=== PATIENT | female | born 1980 ===

== ENCOUNTER 2017-01-12 19:59 | Emergency (ER) | payer OTHER ==
[2017-01-12] MEDS ORDERED: IOPAMIDOL 300 (61%) 100 ML VIAL IV ONE (20:00)
[2017-01-12 20:39] LABS: SPECIFIC GRAVITY 1.025 (1.001-1.030); URINE APPEARANCE CLEAR; URINE BILIRUBIN NEGATIVE (NEGATIVE); URINE BLOOD TRACE (NEGATIVE); URINE COLOR YELLOW; URINE GLUCOSE (UA) NEGATIVE (NEGATIVE); URINE LEUKOCYTE ESTERASE TRACE (NEGATIVE); URINE NITRITE NEGATIVE (NEGATIVE); URINE PROTEIN TRACE (NEGATIVE); URINE UROBILINOGEN NORMAL (0-1 mg/dl)
[2017-01-12 20:41] LABS: HCG,QUALITATIVE URINE NEGATIVE
[2017-01-12 20:46] LABS: URINE EPITHELIAL CELLS FEW /hpf
[2017-01-12 20:47] LABS: URINE BACTERIA 1+
[2017-01-12] MEDS ORDERED: SODIUM CHLORIDE 0.9% 1,000 ML ONE (21:47)
[2017-01-12] MEDS ORDERED: KETOROLAC TROMETHAMINE 30 MG/ML 1 ML VIAL ONE (21:47)
[2017-01-12] MEDS ORDERED: ONDANSETRON 4 MG/2ML 2 ML VIAL ONE (21:47)
[2017-01-12 21:57] LABS: ABSOLUTE NEUTROPHIL COUNT 7.7 K/mm3 (1.8-7.7); BASO % 0.4 % (0.2-1.0); EOS % 0.2 % (0.9-2.9); HEMATOCRIT 36.1 % (37.0-47.0); HEMOGLOBIN 11.7 gm/l (12.0-16.0); IMM NEUT% 0.2 % (0-1); LYMPH # 1.6 (1.0-4.8); LYMPH % 16.2 % (15-45); MEAN CELL VOLUME 85.1 fl (81.0-99.0); MEAN CORPUSCULAR HEMOGLOBIN 27.6 pg (27.0-31.0); MEAN CORPUSCULAR HGB CONC 32.4 g/dl (33.0-37.0); MEAN PLATELET VOLUME 9.7 fl (7.4-10.4); MONO # 0.3 (0.0-0.8); MONO % 3.1 % (4-12); NEUT % 79.9 % (43-75); PLATELET COUNT 251 K/mm3 (130-400); RED CELL DISTRIBUTION WIDTH 13.9 % (11.5-14.5)
[2017-01-12 22:17] LABS: ALB/GLOB RATIO 1.4 (>1.0); ALBUMIN 4.2 gm/dL (3.5-5.7); CALCIUM 9.1 mg/dL (8.6-10.3)
--- NOTE | 2017-01-13 08:11 | CT ---
ABD/PELVIS W/ CON COMPARISON: None. HISTORY: 36-year-old female. Onset of vomiting 3 days ago with left lower quadrant pain, no constipation, diarrhea, or urinary pain. Moderate tenderness, with slight guarding. Surgical history of tubal ligation and 3 C-sections. Technique: No oral contrast. Intravenous injection 100 mL Isovue 300. Using a [employer] Aquilion [address] scanner, images were obtained from the diaphragm to the floor the pelvis. An automated dose reduction technique was used to minimize patient radiation dose. Dose information: CTDIvol (mGy): 6.80 DLP(mGycm): 348.80 FINDINGS: Lung bases: Normal. Inferior mediastinum and heart: Normal. Liver: Normal. Gallbladder:Normal. Bile ducts: Normal. Pancreas: Normal. Spleen: Normal. Adrenal glands: Normal. Kidneys: Normal. Ureters: Normal Urinary bladder: Normal. Uterus and adnexa: Normal. Blood vessels: Normal Lymph nodes: Normal Stomach: Normal Duodenum: Normal Small intestine: Normal Appendix: Normal Colon: Normal Abdominal wall and supporting musculature: Normal Bones: Normal IMPRESSION: Normal study. Preliminary report by [employer] radiologist Meli Moscoso MD 01/12/2017 at 22:54
== END 2017-01-13 | disposition home or self-care (01) ==
LOC: ED 19:59
DX: N83.209 Unspecified ovarian cyst, unspecified side (principal); R11.10 Vomiting, unspecified
CPT/HCPCS: 83690; 81025; 82150; 85025; 87086; 80053; 81001; 74177; 96375; 99284 ×2; 96374; 96361 ×2; J1885; J2405; J7030; Q9967